=== PATIENT | male | born 1955 | race Caucasian/White ===

== ENCOUNTER → 2024-02-29 15:47 | Outpatient (REF) | payer MEDICARE, SELFPAY | LOC: RAD 15:47 | PROVIDERS: ATTENDING PHYSICIAN Nurse Practitioner | DX: J40 Bronchitis, not specified as acute or chronic (principal) | CPT/HCPCS: 71046 ==

== ENCOUNTER → 2024-09-06 10:29 | Outpatient (REF) | payer MEDICARE, OTHER, SELFPAY | LOC: RAD 10:29 | PROVIDERS: ATTENDING PHYSICIAN Hospitalist; FAMILY PHYSICIAN Internal Medicine | DX: R05.3 Chronic cough (principal) | CPT/HCPCS: 71046 ==

== ENCOUNTER → 2025-01-02 14:09 | Outpatient (REF) | payer MEDICARE, OTHER, SELFPAY | LOC: HWRAD 14:09 | PROVIDERS: ATTENDING PHYSICIAN Internal Medicine; REFERRING PHYSICIAN Internal Medicine Cardiovascular Disease | DX: F17.210 Nicotine dependence, cigarettes, uncomplicated (principal) | CPT/HCPCS: 71271 ==